=== PATIENT | male | born 1985 | race Caucasian/White ===

== ENCOUNTER 2016-07-28 17:56 | Emergency (ER) | payer OTHER ==
[~2016-07-28] VITALS: Ht 182.8 cm; Wt 77.1 kg
[2016-07-28] MEDS ORDERED: CYCLOBENZAPRINE10 MG PO (19:51)
== END 2016-07-28 19:58 | disposition home or self-care (01) ==
LOC: ED 17:56
DX: S39.012A Strain of muscle, fascia and tendon of lower back, initial encounter (principal); F17.200 Nicotine dependence, unspecified, uncomplicated; Z88.8 Allergy status to other drugs, medicaments and biological substances; V49.88XA Car occupant (driver) (passenger) injured in other specified transport accidents, initial encounter; Y93.89 Activity, other specified; Y92.413 State road as the place of occurrence of the external cause; Y99.9 Unspecified external cause status